=== PATIENT | female | born 1990 | race Two or more races ===

== ENCOUNTER 2024-08-22 05:28 | Day surgery (SDC) | payer OTHER ==
[2024-08-16 12:30] LABS: PH,URINE 6.5 (5.0-8.0); URINE APPEARANCE Clear; URINE BILIRRUBIN Negative (NEGATIVE); URINE BLOOD Negative; URINE COLOR Yellow; URINE GLUCOSE Negative (NEGATIVE); URINE KETONE Negative (NEGATIVE); URINE LEUKOCYTE Negative; URINE NITRATE Negative; URINE PROTEIN Negative (NEGATIVE); URINE UROBILINOGEN 0.2 E.U./dl
[2024-08-16 12:37] LABS: URINE BACTERIA 244.6 uL (0.0-1933); URINE EPITHELIAL CELLS 7.5 uL (0.0-38.8); URINE RBC 3.3 uL (0.0-20.8); URINE WBC 3.9 uL (0.0-23.2)
[2024-08-16 12:39] LABS: BASO % 1.7 % (0.1-1.2); EOS # 0.04 (0.04-0.54); EOS % 0.8 % (0.7-7.0); HEMOGLOBIN 12.2 g/dL (11.2-15.7); LYMPH # 2.05 (1.18-3.74); LYMPH % 42.4 % (19.3-53.1); MEAN CORPUSCULAR HEMOGLOBIN 26.2 pg (25.6-32.2); MONO # 0.57 (0.24-0.82); MONO % 11.8 % (4.7-12.5); NEUT # 2.08 (1.56-6.13); NEUT % 43.1 % (34.0-71.1); PLATELET COUNT 371 K/uL (163-369); RED BLOOD COUNT 4.66 M/uL (3.93-5.22); RED CELL DISTRIBUTION WIDTH 18.4 % (11.6-14.4)
[2024-08-16 12:58] LABS: INR 1.02; PARTIAL THROMBOPLASTIN TIME 31.3 SECONDS (22.0-34.0); PROTHROMBIN TIME 11.1 SECONDS (9.0-11.5)
[2024-08-16 14:08] LABS: ALBUMIN 4.1 gm/dL (3.4-5.0); BILIRUBIN TOTAL 0.37 mg/dL (0.3-1.2); BILIRUBIN,CONJUGATED 0.12 mg/dL (0.0-0.2); BILIRUBIN,UNCONJUGATED 0.25 mg/dL (0.0-0.6); CREATININE SERUM 0.75 mg/dL (0.55-1.02); GFR 87.94; POTASSIUM 4.29 mEq/L (3.5-5.1); TOTAL PROTEIN 7.9 gm/dL (6.4-8.2)
[~2024-08-22 05:28] MED LIST: ENBREL50 MG/1 M2 SUBCUTANEO; FOLIC ACID0.8 M1 PO; KEPPRA XR500 MG PO
[2024-08-22] MEDS ORDERED: BUPIVACAINE HCL/MPF 0.5% 30ML VIAL ONE (07:25)
[2024-08-22] MEDS ORDERED: ENOXAPARIN SODIUM 40 MG/0.4 ML SYRINGE SUBCUTANEO ONE (07:25)
[2024-08-22] MEDS ORDERED: METRONIDAZOLE/SODIUM CHLORIDE 500 MG/100 ML PIGGYBACK IV ONE (07:26)
[2024-08-22] MEDS ORDERED: CEFTRIAXONE SODIUM 2,000 MG VIAL ONE (07:26)
[2024-08-22] MEDS ORDERED: PERCOCET 5-3251 EACH PO (09:46)
[2024-08-22] MEDS ORDERED: MORPHINE SULFATE 4 MG/ML VIAL IV ONE (10:35)
== END 2024-08-22 11:50 | disposition home or self-care (01) ==
LOC: CIR.AMB 05:28
PROVIDERS: ATTEND Surgery
DX: K80.10 Calculus of gallbladder with chronic cholecystitis without obstruction (principal); Z88.6 Allergy status to analgesic agent; Z91.018 Allergy to other foods